=== PATIENT | female | born 1970 | race Caucasian/White ===

== ENCOUNTER → 2022-05-24 13:55 | Outpatient (BNVA) | payer OTHER, SELFPAY | PROVIDERS: Visit Provider Family Medicine | DX: Z12.11 Encounter for screening for malignant neoplasm of colon (principal); Z13.6 Encounter for screening for cardiovascular disorders; F17.219 Nicotine dependence, cigarettes, with unspecified nicotine-induced disorders; I10 Essential (primary) hypertension | CPT/HCPCS: 80053; 80061; 84439; 84443; 85025 ==

== ENCOUNTER → 2022-05-29 16:29 | Outpatient (BNVA) | payer OTHER, SELFPAY | PROVIDERS: Visit Provider Family Medicine | DX: E07.9 Disorder of thyroid, unspecified (principal) | CPT/HCPCS: 84480 ==

== ENCOUNTER → 2022-10-17 16:15 | Outpatient (BNVA) | payer BC, SELFPAY | PROVIDERS: PCP Family Medicine; Visit Provider Family Medicine | DX: I10 Essential (primary) hypertension (principal); M75.01 Adhesive capsulitis of right shoulder; E05.90 Thyrotoxicosis, unspecified without thyrotoxic crisis or storm | CPT/HCPCS: 83516; 84445 ==

== ENCOUNTER 2022-10-25 08:24 | Outpatient (CLI) | payer BC, SELFPAY ==
--- NOTE | 2022-10-25 08:49 | MM_ITS ---
WS: [id number] VIEWS: MLO and CC views both breasts. 3D digital tomosynthesis is also included in this exam. No previous exams. Findings: There is a suspicious 1.2 x 1.2 cm mass with microcalcifications in the upper outer quadrant of the right breast at posterior depth seen only on the MLO view. There are no suspicious findings in the le ft breast. Exaggerated craniocaudal, and 90 degree lateral views of the right breast would be indica alexis in addition to regional ultrasound of the upper outer quadrant of the right breast.Both breasts c ontain scattered fibroglandular densities. MM/[place] [id number] Impression: BI-RADS: 0-Incomplete: Need additional imaging evaluation FOLLOW-UP: See Report This mammogram was also analyzed by the Computer Aided Detection System R2 Imag e Ingot Supervisor.
== END 2022-10-25 08:25 | disposition home or self-care (01) ==
LOC: RAD 08:29
PROVIDERS: PCP Family Medicine; Visit Provider Family Medicine
DX: Z12.31 Encounter for screening mammogram for malignant neoplasm of breast (principal)
CPT/HCPCS: 77063; 77067